=== PATIENT | female | born 1990 | race African-American/Black ===

== ENCOUNTER 2018-06-07 13:45 | Emergency (ER) | payer SELFPAY ==
[~2018-06-07] VITALS: Ht 162.6 cm; Wt 77.3 kg
[2018-06-07 13:54] VITALS: Ht 162.6 cm; Wt 77.3 kg
[2018-06-07] MEDS ORDERED: DOXYCYCLINE HY100 M2 PO (14:55)
[2018-06-07] MEDS ORDERED: NORCO 7.5/325 T1 TA1 PO (14:55)
[2018-06-07 16:49] VITALS: BP 124/89
== END 2018-06-07 15:07 | disposition home or self-care (01) ==
LOC: D.ER 13:45
DX: L02.31 Cutaneous abscess of buttock (principal)